=== PATIENT | female | born 1950 | race Caucasian/White ===

== ENCOUNTER → 2021-04-01 08:24 | Outpatient (CLI) | payer MEDICARE, SELFPAY ==
[2021-04-02 23:20] LABS: SARS-CoV-2 RNA PCR Positive
== END ==
PROVIDERS: PCP Internal Medicine Endocrinology, Diabetes & Metabolism; Visit Provider Internal Medicine Endocrinology, Diabetes & Metabolism
DX: U07.1 COVID-19 (principal)
CPT/HCPCS: C9803; U0003; U0005

== ENCOUNTER 2021-04-15 09:37 | Emergency (ER) | payer MEDICARE, SELFPAY ==
--- NOTE | ~2021-04-15 | XR_ITS ---
EXAMINATION: XR ankle RT min 3V DATE: 04/15/2021 11:31 INDICATION: Right ankle injury and pain. TECHNIQUE: 4 views of right ankle were obtained. COMPARISON: None. FINDINGS: Bone alignment is normal. No fracture. There is mild osteoarthritis of talonavicular joint. There is an enthesophyte at posterior aspect of calcaneal tuberosity. There is soft tissue swelling of the ankle and dorsal midfoot. IMPRESSION: 1. No fracture. Reviewed, dictated and finalized at location [facility]ERT IMPRESSION: 1. No fracture.
[2021-04-15 09:47] VITALS: BP 151/73; PULSE 99; RESP 18; TEMP 36.5; O2SAT 100
--- NOTE | 2021-04-15 11:22 | PC.NURSE ---
Pt has not taken medications to relieve pain or discomfort.
[2021-04-15] MEDS: ACETAMINOPHEN 325 MG TABLET 650 MG PO (11:36)
--- NOTE | 2021-04-15 11:43 | ED.LOWEXIN ---
HPI - Extremity Injury (Lower) General Chief Complaint: Extremity Injury, Lower Stated Complaint: fall, right ankle pain Time Seen by Provider: 04/15/21 11:12 History of Present Illness HPI Narrative: Patient is a 70-year-old female who presents ER with right ankle pain. She fell asleep on her couch and woke up and tried to get up when she got her foot caught beneath the rug and then took a tumble. She did not strike her head or lose consciousness. Said pain to her lateral right ankle and the top of her foot since the fall. Reports she limps when she walks but she can stand up on it. No numbness or tingling. Patient reports some backaches from fall. No lower extremity numbness or tingling. Mild improvement with Aleve last night. Related Data Allergies Allergy/AdvReac Type Severity Reaction Status Date / Time No Known Allergies Allergy Verified 04/15/21 11:31 Review of Systems Review of Systems: All systems reviewed & are unremarkable except as noted in HPI and below Musculoskeletal: Musculoskeletal: Reports back pain, Reports arthralgias, Reports joint swelling and Denies muscle cramps Neurologic: Denies syncope, Denies headache(s), Denies focal weakness and Denies numbness PMFSH Past Medical History Medical History (Updated 04/15/21 @ 12:01 by Kings Fam MD) GERD (gastroesophageal reflux disease) Surgical History Surgical History (Updated 04/15/21 @ 11:48 by Kings Fam MD) No pertinent past surgical history Social History Social History (Updated 04/15/21 @ 11:48 by Kings Fam MD) Smoking status: Never smoker Exam Narrative: GENERAL: Well-appearing, well-nourished, and in no acute distress. HEAD: Normocephalic, atraumatic. HEART: Regular rate and rhythm. No murmur heard. Normal peripheral pulses. Back: No reproducible midline tenderness of T/L-spine. EXTREMITIES: Normal range of motion. No edema. Mild swelling right lateral malleolus with tenderness over the anterior inferior aspect. SKIN: Warm, dry, no rash. NEURO: No focal deficits. Alert and oriented x3. PSYCH: Normal mood and affect. Course Course Emergency Course: Patient informed of results. Discharge home. Vital Signs Vital signs: Vital Signs Temperature 97.7 F 04/15/21 09:47 Pulse Rate 99 04/15/21 09:47 Respiratory Rate 18 04/15/21 09:47 Blood Pressure 151/73 H 04/15/21 09:47 Pulse Oximetry 100 04/15/21 09:47 Temperature 97.7 F 04/15/21 09:47 Pulse Rate 99 04/15/21 09:47 Respiratory Rate 18 04/15/21 09:47 Blood Pressure 151/73 H 04/15/21 09:47 Pulse Oximetry 100 04/15/21 09:47 MDM - Extremity Injury (Lower) Imaging Data Radiologist's impression: ITS Impressions Ankle X-Ray 04/15/21 11:32 IMPRESSION: 1. No fracture. Discharge Plan Discharge Clinical Impression: Ankle sprain and strain Patient Disposition: Home, Self-Care Condition: Stable Instructions: Ankle Sprain (ED), P.R.I.C.E. Treatment (ED) Additional Instructions: Return the ER if you have new injury, you develop chest pain or shortness of breath, you have a swollen lower leg, you have additional concerns. Follow-up/Referrals: Liu,Scooter Henriquez MD [Primary Care Provider] - 1 Week Stand Alone Forms: Work/School Release IP
[2021-04-15 12:31] VITALS: BP 148/76; PULSE 90; RESP 16; O2SAT 100
== END 2021-04-15 12:39 | disposition home or self-care (01) ==
PROVIDERS: Emergency Provider Emergency Medicine; PCP Internal Medicine Endocrinology, Diabetes & Metabolism
DX: S93.401A Sprain of unspecified ligament of right ankle, initial encounter (principal); S96.911A Strain of unspecified muscle and tendon at ankle and foot level, right foot, initial encounter; K21.9 Gastro-esophageal reflux disease without esophagitis; W18.09XA Striking against other object with subsequent fall, initial encounter
CPT/HCPCS: 73610; 99283; A9270

== ENCOUNTER 2024-02-26 09:37 | Emergency (ER) | payer MEDICARE, SELFPAY ==
--- NOTE | ~2024-02-26 | CT_ITS ---
CT of the Abdomen and Pelvis: Indication: Abdominal pain Technique: 2.5 mm axial scans were obtained through the abdomen and pelvis following intravenous adm inistration of 100 cc of Omnipaque 350. Dose reduction technique was used on this scan by utilizing a utomated exposure control and iterative reconstruction technique. The dose-length product (DLP) was 1 63.10 mGy-cm. Findings: Scans through the lung bases demonstrate emphysematous change of the lung bases. Hepatic cysts are present. Cholecystectomy clips are present. There is prominence of the distal commo n bile duct and main pancreatic duct. The spleen, pancreas, adrenals and kidneys are otherwise within normal limits. There are atherosclerotic calcifications of the aorta. No lymphadenopathy. No bowel obstruction or bowel wall thickening. There is no evidence to suggest acute appendicitis. Images through the pelvis were performed. Urinary bladder unremarkable. Status post hysterectomy. No pelvic mass. No ascites. Impression: No acute abnormality evident. Prominent common bile duct and main pancreatic duct, possibly related to prior cholecystectomy and pa tient age. No obstructing mass evident. Emphysematous change the lung bases. Reviewed, dictated and finalized at [facility]. [employer] Impression: No acute abnormality evident. Prominent common bile duct and main pancreatic duct, possibly related to prior cholecystectomy and patient age. No obstructing mass evident. Emphysematous change the lung bases.
[2024-02-26 09:49] VITALS: BP 182/88; PULSE 84; RESP 20; TEMP 36.4; O2SAT 100
[2024-02-26 11:42] LABS: Basophils Absolute Auto 0.1 K/mm3 (0.0-0.1); Basophils Percent Auto 0.7 % (0.2-1.2); Eosinophils Absolute Auto 0.1 K/mm3 (0-0.3); Eosinophils Percent Auto 1.3 % (0-4.4); Hemoglobin 13.2 g/dL (12.0-15.0); Immature Granulocyte Absolute 0.01 K/mm3 (0.00-0.031); Immature Granulocyte Percent A 0.1 % (0-0.5); Lymphocytes Absolute Auto 2.39 K/mm3 (0.9-3.2); Lymphocytes Percent Auto 27.5 % (18.3-44.2); Mean Corpuscular HGB Conc 32.2 g/dl (32-36); Mean Corpuscular Hemoglobin 30.3 pg (26-34); Mean Corpuscular Volume 94.3 fl (80-100); Mean Platelet Volume 10.8 fl (7.4-10.4); Monocytes Absolute Auto 0.6 K/mm3 (0.1-0.6); Monocytes Percent Auto 7.4 % (2.6-8.5); Neutrophils Absolute Auto 5.5 K/mm3 (1.3-6.7); Platelet Count Result 228 k/mm3 (150-375); Red Blood Count 4.35 M/mm3 (4.2-5.4); Red Cell Distribution Width 13.9 % (11.5-14.5); White Blood Count 8.7 K/mm3 (4.5-10.0)
[2024-02-26 11:49] LABS: Add Urine Microscopic? YES; Appearance Urine Clear (Clear); Bacteria Urine None Seen /hpf; Bilirubin Urine Negative (Negative); Blood Urine 2+ (Negative); Color Urine Yellow (Yellow); Glucose Urine UA Negative (Negative); Ketones Urine Negative (Negative); Leukocyte Esterase Ur Negative LEU/UL (Negative); Nitrate Urine Negative (Negative); Non Pathogenic Casts 0-2; Protein Urine Negative (Negative); Specific Grav Ur 1.008 (1.001-1.035); Squamous Epithelial Cell Urine None Seen /hpf (Few); Urobilinogen Urine 0.2 mg/dL (<2.0); WBC Urine 0-5 /hpf (0-3); pH Urine 6.5 (5.0-9.0)
[2024-02-26 11:54] LABS: Lactic Acid Reflex 0.8 mmol/L (0.7-2.0)
[2024-02-26 11:55] LABS: Alanine Aminotransferase 12 U/L (6-35); Albumin Level 4.3 g/dL (3.5-5.1); Alkaline Phosphatase 99 U/L (38-126); Anion Gap 0 mmol/L (4-12); Aspartate Amino Transferase 23 U/L (14-36); Bilirubin,Total 0.6 mg/dL (0.2-1.3); Blood Urea Nitrogen 12 mg/dL (7-17); Calcium 9.3 mg/dL (8.4-10.2); Carbon Dioxide 31 mmol/L (22-30); Chloride 108 mmol/L (98-107); Estimated CRCL calculation 36 ml/min; Estimated Glomerular Filt Rate > 60; Glucose 99 mg/dL (65-110); Lipase 108 U/L (23-300); Potassium 4.5 mmol/L (3.4-5.0); Sodium 139 mmol/L (137-145)
[2024-02-26] MEDS: MORPHINE SULFATE (*CRX) 2 MG/ML INJ IV PUSH (12:39)
[2024-02-26] MEDS: DICYCLOMINE HCL 10 MG CAPSULE 20 MG PO (14:27)
[2024-02-26] MEDS: FAMOTIDINE 20 MG TABLET PO (14:28)
[2024-02-26] MEDS: MAG HYDROX/AL HYDROX/SIMETH 30 ML UDC PO (14:28)
[2024-02-26] MEDS: PANTOPRAZOLE SODIUM IV 40 MG VIAL IV PUSH (14:28)
--- NOTE | 2024-02-26 17:16 | ED_ITS ---
HPI - Abdominal Pain General Chief Complaint: Abdominal Pain Stated Complaint: abd pain Time Seen by Provider: 02/26/24 10:59 History of Present Illness HPI narrative: patient presents reporting abdominal pain, she does have a history of severe gastritis/ulcers, and pancreatitis, this feels similar to it but she does also have a history of prior bowel obstruction, kidney stones, UTI, so would like to make sure nothing is wrong. Related Data Allergies Allergy/AdvReac Type Severity Reaction Status Date / Time erythromycin base AdvReac Mild Nausea Verified 02/26/24 09:38 Review of Systems 2 Review of Systems: All systems reviewed & are unremarkable except as noted in HPI and below PMFSH Past Medical History Medical History (Updated 02/26/24 @ 14:13 by Puja Oates MD) GERD (gastroesophageal reflux disease) Surgical History Surgical History (Updated 04/15/21 @ 11:48 by Kings Fam MD) No pertinent past surgical history Social History Social History (Updated 04/15/21 @ 11:48 by Kings Fam MD) Smoking status: Never smoker Exam 2 Narrative: EXAMINATION OF ORGAN SYSTEMS/BODY AREAS: Constitutional: Vital signs per nursing GENERAL: appears uncomfortable HEAD: Normal with no signs of head trauma. EYES: EOMI, conjunctiva normal ENT: Hearing grossly intact LUNGS: Nonlabored breathing. HEART: [Regular rate and rhythm] ABD: [Soft], Slightly tender to palpation epigastric/periumbilical EXT: Normal range of motion SKIN: [No rashes or lesions.] NEURO: [Alert and oriented x 3. No gross focal sensory or strength deficits.] PSYCH: Normal affect Course Vital Signs Vital signs: Vital Signs Temperature 97.5 F L 02/26/24 09:49 Pulse Rate 84 02/26/24 09:49 Respiratory Rate 20 02/26/24 09:49 Blood Pressure 182/88 H 02/26/24 09:49 Pulse Oximetry 100 02/26/24 09:49 Oxygen Delivery Room Air 02/26/24 09:49 Temperature 97.5 F L 02/26/24 09:49 Pulse Rate 84 02/26/24 09:49 Respiratory Rate 20 02/26/24 09:49 Blood Pressure 182/88 H 02/26/24 09:49 Pulse Oximetry 100 02/26/24 09:49 Oxygen Delivery Room Air 12/10/24 09:49 MDM - Abdominal Pain MDM Narrative Medical decision making narrative: Electronic medical record was reviewed. Patient presented to the ED with complaint of [abdominal pain]. Vitals [were within acceptable limits]. Physical exam revealed [very minimal tenderness to palpation in periumbilical abdomen]. Based on the patient's history and physical exam, my differential includes but is not limited to [gastritis, SBO, diverticulitis, pancreatitis, kidney stone]. [IV access was established by nursing staff. Patient was given IV morphine]. CBC, BMP, lipase, LFTs, bilirubin and alk phos were obtained. Labs were pertinent for labs within acceptable limits other than very slight blood in urine. [Decision was made to obtain a CT-abdomen to evaluate for acute abdominal process. CT-abdomen per radiology interpretation is unremarkable for acute intra-abdominal process, no signs of hydronephrosis, cholecystitis, appendicitis.] On reevaluation, the patient states that they are feeling better. There were no witnessed episodes of vomiting in the emergency department. They are not complaining of any new abdominal pain. Repeat examination did not show any significant guarding or rebound. No new tenderness. At this time I do not feel there is any further emergent treatment to be provided. The patient was given strict return precautions, if they are to develop any worsening abdominal pain, vomiting, or blood in the vomit they are to return to the emergency department immediately. Patient verbally acknowledges understanding these directions. [The patient was informed of the above diagnostic test findings.] No further workup is necessary at this time. They will be discharged home [with prescriptions]. They were advised to follow-up with [their PCP] in 2 days. The patient feels that this is appropriate medical decision making and verbalizes an understanding of the discharge instructions. Lab Data 02/26/24 11:35 02/26/24 11:35 Labs: Lab Results 02/26/24 Range/Units 11:35 WBC 8.7 (4.5-10.0) K/mm3 RBC 4.35 (4.2-5.4) M/mm3 Hgb 13.2 (12.0-15.0) g/dL Hct 41.0 (37.0-47.0) % MCV 94.3 (80-100) fl MCH 30.3 (26-34) pg MCHC 32.2 (32-36) g/dl RDW 13.9 (11.5-14.5) % Plt Count 228 (150-375) k/mm3 MPV 10.8 H (7.4-10.4) fl Immature Gran % (Auto) 0.1 (0-0.5) % Neut % (Auto) 63.0 (45.5-73.1) % Lymph % (Auto) 27.5 (18.3-44.2) % [place] % (Auto) 7.4 (2.6-8.5) % Eos % (Auto) 1.3 (0-4.4) % Baso % (Auto) 0.7 (0.2-1.2) % Lymph # (Auto) 2.39 (0.9-3.2) K/mm3 [place] # (Auto) 0.6 (0.1-0.6) K/mm3 Eos # (Auto) 0.1 (0-0.3) K/mm3 Baso # (Auto) 0.1 (0.0-0.1) K/mm3 Abs Immat Gran (auto) 0.01 (0.00-0.031) K/mm3 Absolute Neuts (auto) 5.5 (1.3-6.7) K/mm3 Absolute Nucleated RBC 0.000 (0.0-0.012) K/mm3 Nucleated RBC % 0.0 (0.0-0.2) % Sodium 139 (137-145) mmol/L Potassium 4.5 (3.4-5.0) mmol/L Chloride 108 H (98-107) mmol/L Carbon Dioxide 31 H (22-30) mmol/L Anion Gap 0 L (4-12) mmol/L BUN 12 (7-17) mg/dL Creatinine 0.90 (0.7-1.0) mg/dL Estim Creat Clear Calc 36 ml/min Estimated GFR > 60 (59 - ) Glucose 99 (65-110) mg/dL Lactic Acid 0.8 (0.7-2.0) mmol/L Calcium 9.3 (8.4-10.2) mg/dL Total Bilirubin 0.6 (0.2-1.3) mg/dL AST 23 (14-36) U/L ALT 12 (6-35) U/L Alkaline Phosphatase 99 (38-126) U/L Total Protein 7.0 (6.3-8.2) g/dL Albumin 4.3 (3.5-5.1) g/dL Lipase 108 (23-300) U/L Urine Color Yellow (Yellow) Urine Appearance Clear (Clear) Urine pH 6.5 (5.0-9.0) Ur Specific [place] 1.008 (1.001-1.035) Urine Protein Negative (Negative) mg/dL Urine Glucose (UA) Negative (Negative) mg/dL Urine Ketones Negative (Negative) mg/dL Ur Blood (Man) 2+ H (Negative) Urine Nitrate Negative (Negative) Urine Bilirubin Negative (Negative) Urine Urobilinogen 0.2 (<2.0) mg/dL Leukocyte Esterase Rfl Negative (Negative) LUIS/UL Urine RBC 6-10 H (0-2) /hpf Urine WBC 0-5 (0-3) /hpf Ur Squamous Epith Cells None seen (Few) /hpf Urine Bacteria None seen /hpf Urine Casts 0-2 Imaging Data Radiologist's impression: ITS Impressions Abdomen/Pelvis CT 02/26/24 13:33 Impression: No acute abnormality evident. Prominent common bile duct and main pancreatic duct, possibly related to prior cholecystectomy and patient age. No obstructing mass evident. Emphysematous change the lung bases. Discharge Plan Discharge Clinical Impression: Abdominal pain Patient Disposition: Home, Self-Care Condition: Stable Instructions: Abdominal Pain (ED) Additional Instructions: Please follow up with your GI doctor; come back to the ER if you feel worse. Patient Language: Jordanian Prescriptions: New famotidine 20 mg tablet 20 mg PO DAILY Qty: 30 0RF alum-mag hydroxide-simeth [Maalox Advanced] 200-200-20 mg/5 mL suspension 10 ml PO QID PRN (Reason: dyspepsia) Qty: 300 0RF Rx Instructions: administer between meals and at bedtime ondansetron 4 mg tablet,disintegrating 4 mg PO Q8H PRN (Reason: nausea and vomiting) Qty: 10 0RF Follow-up/Referrals: Liu,Scooter Henriquez MD [Primary Care Provider] - 2 Days Stand Alone Forms: Work/School Release IP
== END 2024-02-26 14:47 | disposition home or self-care (01) ==
PROVIDERS: Emergency Provider Emergency Medicine; PCP Internal Medicine Endocrinology, Diabetes & Metabolism
DX: R10.9 Unspecified abdominal pain (principal); K21.9 Gastro-esophageal reflux disease without esophagitis
CPT/HCPCS: 36415; 74177; 80053; 81001; 83605; 83690; 85025; 96374; 96375; 99284; A9270; J2270; J2470; Q9967